=== PATIENT | male | born 1965 | race Caucasian/White ===

== ENCOUNTER 2023-02-13 14:15 | Outpatient (RCR) | payer BC, SELFPAY | END 2023-02-13 15:01 | disposition home or self-care (01) | LOC: RPT 14:15 | PROVIDERS: ATTENDING PHYSICIAN Urology; PRIMARYCARE PHYSICIAN Family Medicine | DX: N40.1 Benign prostatic hyperplasia with lower urinary tract symptoms (principal); M62.89 Other specified disorders of muscle; M62.81 Muscle weakness (generalized); R27.8 Other lack of coordination; Z73.6 Limitation of activities due to disability | CPT/HCPCS: 97014; 97110; 97112; 97530 ==

== ENCOUNTER → 2023-05-25 06:24 | Day surgery (SDC) | payer BC, SELFPAY | LOC: GI 06:24 | PROVIDERS: ATTENDING PHYSICIAN Internal Medicine | DX: Z12.11 Encounter for screening for malignant neoplasm of colon (principal); K57.30 Diverticulosis of large intestine without perforation or abscess without bleeding; D12.8 Benign neoplasm of rectum; K64.8 Other hemorrhoids; Z86.010 Personal history of colon polyps | CPT/HCPCS: 45385; 88305 ==

== ENCOUNTER → 2023-08-04 14:55 | Outpatient (REF) | payer BC, SELFPAY | LOC: HWRCS 14:55 | PROVIDERS: ATTENDING PHYSICIAN Internal Medicine Cardiovascular Disease; FAMILY PHYSICIAN Family Medicine | DX: R06.00 Dyspnea, unspecified (principal) | CPT/HCPCS: 93306 ==

== ENCOUNTER → 2023-08-13 12:54 | Outpatient (REF) | payer BC, SELFPAY ==
--- NOTE | 2023-08-13 14:15 | CARDSERVDEF ---
Echocardiogram with Definity completed after protocol screening completed. Allergies verified.
Patent IV site: Left hand metacarpal 22 G PC
IV site flushed with 0.9% NaCl pre and post administration.
Diluted bolus method utilized to enhance visualization of ventricular chu.
Total volume given: __8__ mL
Patient tolerated all procedures well without complications.
Heplock D/c ed at 1413, site clear, no redness, no edema. Pressure held, no bleeding, 2x2 applied and taped. Pt offers no complaints. Tolerated juice, denies chest pain.
== END ==
LOC: RCS 12:54
PROVIDERS: ATTENDING PHYSICIAN Internal Medicine Cardiovascular Disease; FAMILY PHYSICIAN Family Medicine
DX: R06.00 Dyspnea, unspecified (principal)
CPT/HCPCS: 93017; 93350; Q9957

== ENCOUNTER → 2024-03-28 07:24 | Outpatient (REF) | payer MEDICARE, BC, SELFPAY | LOC: PAVMRI 07:24 | PROVIDERS: ATTENDING PHYSICIAN Psychiatry & Neurology Neurology; FAMILY PHYSICIAN Family Medicine | DX: R55 Syncope and collapse (principal) | CPT/HCPCS: 70551 ==